=== PATIENT | male | born 1940 | race Two or more races ===

== ENCOUNTER 2020-10-25 07:19 | Outpatient (CLI) | payer OTHER ==
[2020-10-25] MEDS ORDERED: COZAAR50 MG (09:23)
[2020-10-25] MEDS ORDERED: ATORVASTATIN CA10 MG (09:23)
[2020-10-25] MEDS ORDERED: LEVO-T75 MCG (09:24)
== END 2020-10-25 07:24 | disposition home or self-care (01) ==
LOC: SONOGRAMA 07:19 → MAMO-SONO 08:45
DX: Q61.02 Congenital multiple renal cysts (principal); D69.59 Other secondary thrombocytopenia; R16.1 Splenomegaly, not elsewhere classified

== ENCOUNTER 2020-10-25 09:12 | Emergency (ER) | payer OTHER ==
[~2020-10-25] VITALS: Ht 165.1 cm; Wt 77.1 kg
[2020-10-25] MEDS ORDERED: ATORVASTATIN CA10 MG (09:23)
[2020-10-25] MEDS ORDERED: COZAAR50 MG (09:23)
[2020-10-25] MEDS ORDERED: LEVO-T75 MCG (09:24)
== END 2020-10-25 12:44 | disposition home or self-care (01) ==
LOC: ER 09:12
DX: M79.661 Pain in right lower leg (principal)

== ENCOUNTER 2022-05-24 08:33 | Outpatient (CLI) | payer OTHER ==
[~2022-05-24 08:33] MED LIST: ATORVASTATIN CA10 MG; COZAAR50 MG; LEVO-T75 MCG
== END 2022-05-24 08:51 | disposition home or self-care (01) ==
LOC: RAD 08:33
PROVIDERS: ATTEND Internal Medicine
DX: M25.561 Pain in right knee (principal); M25.562 Pain in left knee

== ENCOUNTER 2022-11-28 08:00 | Outpatient (CLI) | payer OTHER | END 2022-11-28 08:07 | disposition home or self-care (01) | LOC: SONOGRAMA 08:00 | DX: R10.84 Generalized abdominal pain (principal) ==

== ENCOUNTER 2022-12-03 07:50 | Outpatient (CLI) | payer OTHER | END 2022-12-03 07:53 | disposition home or self-care (01) | LOC: TOM 07:50 | DX: C16.9 Malignant neoplasm of stomach, unspecified (principal) | CPT/HCPCS: 74177; Q9965 ==

== ENCOUNTER 2023-04-26 07:57 | Emergency (ER) | payer OTHER ==
[~2023-04-26] VITALS: Ht 167.6 cm; Wt 80.3 kg
== END 2023-04-26 11:02 | disposition home or self-care (01) ==
LOC: ER 07:58
DX: R10.11 Right upper quadrant pain (principal); I10 Essential (primary) hypertension; E03.9 Hypothyroidism, unspecified; Z85.46 Personal history of malignant neoplasm of prostate

== ENCOUNTER 2023-04-30 06:53 | Emergency (ER) | payer OTHER ==
[~2023-04-30] VITALS: Ht 170.2 cm; Wt 75.7 kg
[2023-04-30 09:19] LABS: URINE APPEARANCE Clear; URINE BILIRRUBIN Negative (NEGATIVE); URINE COLOR Dark Yellow; URINE EPITHELIAL CELLS 3.5 uL (0.0-38.8); URINE GLUCOSE Negative (NEGATIVE); URINE LEUKOCYTE Trace; URINE NITRATE Negative; URINE PROTEIN 30 (NEGATIVE)
[2023-04-30 09:24] LABS: HEMATOCRIT 39.3 % (39.0-48.0); HEMOGLOBIN 13.1 g/dL (13-16.00); MEAN CELL VOLUME 80.9 fL (80.0-100.00); MEAN CORPUSCULAR HEMOGLOBIN 27.1 pg (27.00-32.0); MEAN CORPUSCULAR HGB CONC 33.5 g/dl (32.0-36.0); RED BLOOD COUNT 4.85 M/uL (4.00-6.00); RED CELL DISTRIBUTION WIDTH 14.8 % (11.5-14.5)
[2023-04-30 09:32] LABS: URINE BACTERIA 1.2 uL (0.0-1933); URINE BLOOD TRACES
[2023-04-30 10:25] LABS: PLATELET COUNT 100 K/uL (150-450)
[2023-04-30 10:36] LABS: ALBUMIN 2.9 gm/dL (3.4-5.0); BILIRUBIN TOTAL 0.86 mg/dL (0.3-1.2); BILIRUBIN,CONJUGATED 0.4 mg/dL (0.0-0.2); BILIRUBIN,UNCONJUGATED 0.46 mg/dL (0.0-0.6); CALCIUM 9.2 mg/dL (8.5-10.1); CREATININE SERUM 1.24 mg/dL (0.70-1.30); GFR 55.95; POTASSIUM 3.92 mEq/L (3.5-5.1); TOTAL PROTEIN 6.8 gm/dL (6.4-8.2)
== END 2023-04-30 14:41 | disposition home or self-care (01) ==
LOC: ER 06:54
PROVIDERS: General Practice
DX: R10.9 Unspecified abdominal pain (principal); I10 Essential (primary) hypertension; E03.9 Hypothyroidism, unspecified; K80.20 Calculus of gallbladder without cholecystitis without obstruction
CPT/HCPCS: 36415; 74176; 96372; 99284; J3490

== ENCOUNTER 2023-05-08 07:47 | Outpatient (CLI) | payer OTHER | END 2023-05-08 07:52 | disposition home or self-care (01) | LOC: SONOGRAMA 07:47 | PROVIDERS: ATTEND Surgery | DX: R10.11 Right upper quadrant pain (principal) ==

== ENCOUNTER 2023-05-29 07:10 | Outpatient (CLI) | payer OTHER | END 2023-05-29 07:11 | disposition home or self-care (01) | LOC: NUCLEAR 07:10 | PROVIDERS: ATTEND Surgery | DX: R10.11 Right upper quadrant pain (principal) | CPT/HCPCS: 78227; A9537 ==

== ENCOUNTER 2023-07-08 06:00 | Day surgery (SDC) | payer OTHER ==
[2023-06-26 10:46] LABS: URINE APPEARANCE Clear; URINE BILIRRUBIN Negative (NEGATIVE); URINE BLOOD Negative; URINE COLOR Yellow; URINE GLUCOSE Negative (NEGATIVE); URINE LEUKOCYTE Negative; URINE NITRATE Negative; URINE PROTEIN Negative (NEGATIVE)
[2023-06-26 10:49] LABS: URINE RBC 3.4 uL (0.0-20.8)
[2023-06-26 11:20] LABS: URINE BACTERIA 0 uL (0.0-1933); URINE WBC 0.6 uL (0.0-23.2)
[2023-06-26 11:27] LABS: INR 1.01; PARTIAL THROMBOPLASTIN TIME 31.2 SECONDS (22.0-34.0); PROTHROMBIN TIME 10.6 SECONDS (9.0-11.5)
[2023-06-26 11:29] LABS: HEMATOCRIT 40.9 % (39.0-48.0); HEMOGLOBIN 13.7 g/dL (13-16.00); MEAN CELL VOLUME 79.8 fL (80.0-100.00); MEAN CORPUSCULAR HEMOGLOBIN 26.7 pg (27.00-32.0); MEAN CORPUSCULAR HGB CONC 33.5 g/dl (32.0-36.0); RED BLOOD COUNT 5.13 M/uL (4.00-6.00); RED CELL DISTRIBUTION WIDTH 15.4 % (11.5-14.5)
[2023-06-26 11:33] LABS: ALBUMIN 3.6 gm/dL (3.4-5.0); BILIRUBIN TOTAL 1.03 mg/dL (0.3-1.2); CALCIUM 9.5 mg/dL (8.5-10.1); CREATININE SERUM 1.01 mg/dL (0.70-1.30); GFR 70.9; GLOBULINA 3.6 G/DL (2.4-3.5); POTASSIUM 4.05 mEq/L (3.5-5.1); TOTAL PROTEIN 7.2 gm/dL (6.4-8.2)
[2023-06-26 12:06] LABS: PLATELET COUNT 88 K/uL (150-450)
[2023-07-08 09:22] LABS: COL EPI 84 SECONDS (82-175)
[2023-07-08] MEDS ORDERED: CEFAZOLIN SODIUM 1,000 MG VIAL ONE (10:03)
[2023-07-08] MEDS ORDERED: CEFAZOLIN SODIUM 1,000 MG VIAL IV ONE (11:00)
[2023-07-08] MEDS ORDERED: ONDANSETRON HCL 2 MG/ML VIAL IV ONE (14:05)
[2023-07-08] MEDS ORDERED: ONDANSETRON HCL 2 MG/ML VIAL ONE (14:05)
[2023-07-08] MEDS ORDERED: MORPHINE SULFATE 4 MG/ML VIAL IV ONE ×2 (14:10→14:55)
== END 2023-07-08 16:55 | disposition home or self-care (01) ==
LOC: CIR.AMB 06:00
PROVIDERS: ATTEND Surgery
DX: K80.20 Calculus of gallbladder without cholecystitis without obstruction (principal)

== ENCOUNTER 2023-07-16 10:12 | Outpatient (CLI) | payer OTHER | END 2023-07-16 10:15 | disposition home or self-care (01) | LOC: RAD 10:12 | PROVIDERS: ATTEND General Practice | DX: M25.561 Pain in right knee (principal) ==

== ENCOUNTER 2024-06-14 08:51 | Emergency (ER) | payer OTHER ==
[~2024-06-14] VITALS: Ht 170.2 cm; Wt 72.6 kg
[2024-06-14] MEDS ORDERED: BENZONATATE 200 MG CAPSULE PO ONE (09:30)
[2024-06-14] MEDS ORDERED: MONTELUKAST SODIUM 10 MG TABLET PO ONE (09:30)
[2024-06-14] MEDS ORDERED: FAMOtidine 10 MG/ML (4ML VIAL) IV PUSH ONE (09:30)
[2024-06-14 11:29] LABS: HEMATOCRIT 45.3 % (39.0-48.0); HEMOGLOBIN 15.3 g/dL (13-16.00); MEAN CELL VOLUME 79.4 fL (80.0-100.00); MEAN CORPUSCULAR HEMOGLOBIN 26.8 pg (27.00-32.0); MEAN CORPUSCULAR HGB CONC 33.8 g/dl (32.0-36.0); PLATELET COUNT 150 K/uL (150-450); RED BLOOD COUNT 5.71 M/uL (4.00-6.00); RED CELL DISTRIBUTION WIDTH 14.6 % (11.5-14.5)
[2024-06-14] MEDS ORDERED: LABETALOL HCL 20MG/4ML SYRINGE IV ONE (11:45)
[2024-06-14] MEDS ORDERED: 0.9 % SODIUM CHLORIDE 1,000 ML IV ONE (11:45)
[2024-06-14 12:04] LABS: ABG PH 7.424 (7.35-7.45); ABG PO2 91.2 mmHg (80-100); ABG pCO2 34.8 mmHg (35-45); BASE EXCESS -1.4 mmol/l; BICARBONATE 22.3 mmol/l (23-25); SaO2 97.2 %; Tco2 23.4 mmol/l
[2024-06-14 12:23] LABS: INR 1.1; PARTIAL THROMBOPLASTIN TIME 28.5 SECONDS (22.0-34.0); PROTHROMBIN TIME 11.9 SECONDS (9.0-11.5)
[2024-06-14 12:25] LABS: PH,URINE 5.5 (5.0-8.0); URINE APPEARANCE Clear; URINE BILIRRUBIN Negative (NEGATIVE); URINE BLOOD Negative; URINE COLOR Dark Yellow; URINE GLUCOSE Negative (NEGATIVE); URINE KETONE Trace (NEGATIVE); URINE LEUKOCYTE Negative; URINE NITRATE Negative; URINE PROTEIN Trace (NEGATIVE)
[2024-06-14 12:31] LABS: URINE BACTERIA 9.7 uL (0.0-1933); URINE EPITHELIAL CELLS 7.1 uL (0.0-38.8); URINE RBC 25.3 uL (0.0-20.8); URINE WBC 3.7 uL (0.0-23.2)
[2024-06-14 12:51] LABS: URINE CAST 0.14 uL (0.0-1.40)
[2024-06-14 14:06] LABS: ALBUMIN 3.6 gm/dL (3.4-5.0); BILIRUBIN TOTAL 1.04 mg/dL (0.3-1.2); CALCIUM 9.4 mg/dL (8.5-10.1); CREATININE SERUM 1.21 mg/dL (0.70-1.30); GFR 57.41; GLOBULINA 4.7 G/DL (2.4-3.5); POTASSIUM 3.85 mEq/L (3.5-5.1); TOTAL PROTEIN 8.3 gm/dL (6.4-8.2)
[2024-06-14 14:39] LABS: allen test SATISFACTORY; o2 21 %; puncture site RADIAL LEFT
== END 2024-06-14 16:43 | disposition home or self-care (01) ==
LOC: ER 08:51
PROVIDERS: General Practice
DX: J06.9 Acute upper respiratory infection, unspecified (principal); R05.9 Cough, unspecified; Z20.822 Contact with and (suspected) exposure to COVID-19; I10 Essential (primary) hypertension; E03.8 Other specified hypothyroidism
CPT/HCPCS: 36415; 71046; 82803; 93005; 96365; 96366; 99283; J3490 ×2; J7030

== ENCOUNTER 2024-08-06 08:43 | Outpatient (CLI) | payer OTHER | END 2024-08-06 08:44 | disposition home or self-care (01) | LOC: TOM 08:43 | PROVIDERS: ATTEND General Practice | DX: M51.15 Intervertebral disc disorders with radiculopathy, thoracolumbar region (principal) ==

== ENCOUNTER 2024-08-30 07:55 | Outpatient (CLI) | payer OTHER | END 2024-08-30 07:59 | disposition home or self-care (01) | LOC: RAD 07:55 | PROVIDERS: ATTEND Physical Medicine & Rehabilitation | DX: M54.6 Pain in thoracic spine (principal) ==

== ENCOUNTER 2024-12-28 12:30 | Emergency (ER) | payer OTHER ==
[~2024-12-28] VITALS: Ht 167.6 cm; Wt 73.9 kg
[2024-12-28 14:59] LABS: INR 1.03
[2024-12-28 15:05] LABS: ALT/SGPT 19.0 U/L (12-78); AST/SGOT 15.0 U/L (15-37); BILIRUBIN TOTAL 0.39 mg/dL (0.3-1.2); BUN CREA RATIO 19.0 (7.0-25.0); CREATININE SERUM 1.18 mg/dL (0.70-1.30); GFR 58.95; GLOBULINA 3.7 G/DL (2.4-3.5); GLUCOSE FASTING 193.0 mg/dL (65-100); OSMOLALITY SERUM 295.0 MOSM/KG (275-295)
[2024-12-28 15:30] LABS: BASO % 1.1 % (0.1-1.2); EOS # 0.06 (0.04-0.54); EOS % 1.3 % (0.7-7.0); LYMPH # 1.09 (1.18-3.74); LYMPH % 24.1 % (19.3-53.1); MEAN PLATELET VOLUME 12.50 fl (9.4-12.4); MONO # 1.67 (0.24-0.82); NEUT # 1.66 (1.56-6.13); NEUT % 36.6 % (34.0-71.1); RED CELL DISTRIBUTION WIDTH 14.2 % (11.6-14.4)
[2024-12-28 15:41] LABS: MONO % 36.9 % (4.7-12.5)
[2024-12-28 15:44] LABS: ABG PH 7.430 (7.35-7.45); ABG PO2 87.5 mmHg (80-100); BICARBONATE 28.7 mmol/l (23-25)
[2024-12-28 15:44] LABS: BASOPHIL MAN 1.0 %; LYMPHOCYTE MAN 18.0 %; MONOCYTE MAN 42.0 %; NEUTROPHILS MAN 35.0 %
[2024-12-28 15:45] LABS: o2 21 %
== END 2024-12-28 20:02 | disposition designated cancer center or children's hospital (05) ==
LOC: ER 12:30
PROVIDERS: General Practice
DX: T18.198A Other foreign object in esophagus causing other injury, initial encounter (principal); Z85.46 Personal history of malignant neoplasm of prostate; E03.8 Other specified hypothyroidism; I10 Essential (primary) hypertension

== ENCOUNTER 2025-01-05 08:33 | Outpatient (CLI) | payer OTHER | END 2025-01-05 08:38 | disposition home or self-care (01) | LOC: TOM 08:33 | DX: R10.9 Unspecified abdominal pain (principal) | CPT/HCPCS: 74177; Q9965 ==